=== PATIENT | male | born 1975 | race Caucasian/White ===

== ENCOUNTER 2017-03-15 09:34 | Emergency (ER) | payer MEDICAID ==
[~2017-03-15] VITALS: Ht 177.8 cm; Wt 108.4 kg
[2017-03-15 10:10] VITALS: BP 151/69
[2017-03-15] MEDS ORDERED: methylPREDNISolone SS 125 MG/2 ML VIAL IVP ONE (10:20)
[2017-03-15] MEDS ORDERED: diphenhydrAMINE 50 MG/ML VIAL IVP ONE (10:20)
[2017-03-15] MEDS ORDERED: FAMOTIDINE 20 MG/2 ML VIAL IVP ONE (10:20)
--- NOTE | 2017-03-15 11:00 | NUR ---
42/M BIB C/O BEE STING OVER RIGHT EYELID X TODAY. PT STATES, "THROAT FEELS FUNNY" ; UNSURE IF ALLERGIC TO BEE STINGS, FULL CLEAR SPEECH, SKIN PINK DRY AND WARM TO TOUCH, NO TONGUE SWELLING NOTED . DENIES LOC. SKIN IS PINK/WARM/DRY; AAOX4 WITH EVEN AND STEADY GAIT; LUNGS CLEAR BL; HR EVEN AND REGULAR; PT DENIES ANY FEVER, CP, SOB, OR COUGH AT THIS TIME; PATIENT STATES PAIN OF 6/10 AT THIS TIME; VSS; PATIENT POSITIONED FOR COMFORT; HOB ELEVATED; BEDRAILS UP X2; BED DOWN. ER MD MADE AWARE OF PT STATUS.
--- NOTE | 2017-03-15 12:00 | NUR ---
INSERT IV CATH NO 20 G LEFT AC; PT TOLERATED PROCEDURE WELL. IV PATENT/INTACT.
--- NOTE | 2017-03-15 12:20 | NUR ---
Patient appears to be resting comfortably in bed. Vital Signs within normal limits. Respirations even and unlabored.WILL CONTINUE TO MONITOR. NO PAIN AT THIS TIME
--- NOTE | 2017-03-15 12:26 | NUR ---
EKG AT BEDSIDE
--- NOTE | 2017-03-15 12:30 | NUR ---
ER MD DR CARLISLE REEVALUATING PT AT BEDSIDE.
--- NOTE | 2017-03-15 12:42 | NUR ---
Robert dewitt in [facility] - 03/15/17 at 1243 by MED1 WENDI CARLISLE REEVALUATING PT AT BEDSIDE.
--- NOTE | 2017-03-15 12:43 | NUR ---
ER MD DR CARLISLE REEVALUATING PT AT BEDSIDE.
[2017-03-15 12:53] VITALS: BP 118/70
--- NOTE | 2017-03-15 12:54 | NUR ---
Patient discharged with v/s stable. Written and verbal after care instructions given and explained. Patient alert, oriented and verbalized understanding of instructions. Ambulatory with steady gait. All questions addressed prior to discharge. ID band removed. Patient advised to follow up with PMD. Rx of PEPCID, MEDROL DOSEPAK, EPIPEN2- PACK AUTO - INJECTOR & BENADRYL ALLERGY 25 KAGEL given. Patient educated on indication of medication including possible reaction and side effects. Opportunity to ask questions provided and answered.
== END 2017-03-15 12:54 | disposition home or self-care (01) ==
LOC: MED 09:34
DX: T63.441A Toxic effect of venom of bees, accidental (unintentional), initial encounter (principal); Y92.89 Other specified places as the place of occurrence of the external cause
CPT/HCPCS: 93005; 96374; 96375; 99284; J1200; J2930; J3490

== ENCOUNTER 2018-12-08 20:32 | Emergency (ER) | payer MEDICAID ==
[~2018-12-08] VITALS: Ht 167.6 cm; Wt 113.4 kg
[~2018-12-08 20:32] MED LIST: IBUP-2213 PO
[2018-12-08 20:54] VITALS: BP 141/90
--- NOTE | 2018-12-08 20:55 | NUR ---
TO LOBBY A/W BED, VSDavid, GALE, STACY NOTED
--- NOTE | 2018-12-08 21:55 | NUR ---
PT TO ER BED 9
[2018-12-08 22:03] VITALS: BP 141/90
--- NOTE | 2018-12-08 22:06 | NUR ---
BIB SELF FOR THROAT PAIN X 2 HOURS. STATES HE WAS EATING POTATOS AND CHIPS WHEN THE PAIN STARTED. STATES HE FEELS LIKE THERE IS SOMETHING STUCK IN HIS THROAT. NO RESP DISTRESS NOTED AT THIS TIME. BREATHING EVEN AND UNLABORED. MILD REDNESS NOTED IN THROAT. DENIES OTHER SYMPTOMS AT THIS TIME. POSTIONED FOR COMFORT WITH SIDE RAIL UP X1 AND BED IN LOW LOCKED POSITION.
== END 2018-12-08 23:10 | disposition left against medical advice (07) ==
LOC: MED 20:32
DX: J02.9 Acute pharyngitis, unspecified (principal); Z53.21 Procedure and treatment not carried out due to patient leaving prior to being seen by health care provider